=== PATIENT | female | born 1950 | race Caucasian/White ===

== ENCOUNTER 2023-08-16 11:26 | Emergency (ER) | payer MEDICARE, OTHER ==
[2023-08-16 11:35] VITALS: TEMP 97.8; BMI 19.8
[2023-08-16 12:32] LABS: HEMATOCRIT 36.9 % (32.4-45.2); HEMOGLOBIN 12.4 GM/dL (10.7-15.3); MCH 29.9 pg (25.7-33.7); MCHC 33.5 g/dl (32.0-36.0); MEAN CELL VOLUME 89.2 fl (80-96); MEAN PLT VOLUME 8.3 fl (7.5-11.1); PLATELET COUNT 219 10^3/uL (134-434); RBC 4.14 M/mm3 (3.60-5.2); RDW 14.6 % (11.6-15.6); WHITE BLOOD COUNT 5.3 K/mm3 (4.0-10.0)
[2023-08-16 12:51] LABS: POTASSIUM 3.9 mmol/L (3.5-5.1)
[2023-08-16 12:53] LABS: CALCIUM 9.1 mg/dL (8.5-10.1)
[2023-08-16 12:54] LABS: ALBUMIN 3.7 g/dl (3.4-5.0); BLOOD UREA NITROGEN 9.7 mg/dL (7-18)
[2023-08-16 12:57] LABS: CREATININE 0.6 mg/dL (0.55-1.3)
[2023-08-16 12:58] LABS: BILIRUBIN,TOTAL 0.5 mg/dL (0.2-1); TOT PROT 7.4 g/dl (6.4-8.2)
[2023-08-16 14:01] LABS: EPI CELLS 6 /uL (0-25.1); HYALINE CASTS 0 /uL (0-3.1); URINE APPEARANCE CLEAR; URINE BACTERIA 2 /uL (0-1359); URINE BILIRUBIN NEGATIVE (NEGATIVE); URINE COLOR YELLOW; URINE GLUCOSE (UA) NEGATIVE (NEGATIVE); URINE KETONE NEGATIVE (NEGATIVE); URINE LEUK ESTERASE TRACE (NEGATIVE); URINE NITRITE NEGATIVE (NEGATIVE); URINE PROTEIN NEGATIVE (NEGATIVE); URINE RBC 13 /uL (0-23.9); URINE UROBILINOGEN 0.2 mg/dL (0.2-1.0); URINE WBC 11 /uL (0-25.8)
[2023-08-16] MEDS: SODIUM CHLORIDE 1,000 ML IV STA (14:05)
[2023-08-16 14:43] VITALS: BP 114/72; PULSE 84; RESP 18
== END 2023-08-16 15:29 | disposition home or self-care (01) ==
LOC: JER 11:26
PROC: 3E0337Z Introduction of Electrolytic and Water Balance Substance into Peripheral Vein, Percutaneous Approach (ICD-10-PCS; principal; 2023-08-16)
DX: E86.0 Dehydration (principal); R55 Syncope and collapse
CPT/HCPCS: 36415; 71045-TC-FY; 80053; 81003; 82962; 84484; 85027; 87086; 93005; 93010; 96360; 99285-25

== ENCOUNTER 2023-12-17 20:45 | Emergency (ER) | payer MEDICARE, OTHER ==
[2023-12-17 20:57] VITALS: BP 130/67; PULSE 72; RESP 16; TEMP 98.2; BMI 19.3
[2023-12-17] MEDS ORDERED: ACETAMINOPHEN 325 MG TABLET (FP) ONE (23:42)
[2023-12-17] MEDS: ACETAMINOPHEN 325 MG TABLET (FP) PO ONE (23:45)
== END 2023-12-17 23:47 | disposition home or self-care (01) ==
LOC: JER 20:45
DX: S00.93XA Contusion of unspecified part of head, initial encounter (principal); W01.198A Fall on same level from slipping, tripping and stumbling with subsequent striking against other object, initial encounter; Y92.830 Public park as the place of occurrence of the external cause
CPT/HCPCS: 70450-TC; 72125-TC; 99284-25